=== PATIENT | female | born 1975 | race Asian ===

== ENCOUNTER 2017-06-18 21:07 | Emergency (ER) | payer OTHER ==
[~2017-06-18] VITALS: Ht 172.7 cm; Wt 51.3 kg
[2017-06-18] MEDS ORDERED: NORFLEX100 MG PO (22:55)
[2017-06-18] MEDS ORDERED: NAPROSYN500 MG PO (22:55)
== END 2017-06-18 23:03 | disposition home or self-care (01) ==
LOC: ER 21:07
DX: S16.1XXA Strain of muscle, fascia and tendon at neck level, initial encounter (principal); S00.03XA Contusion of scalp, initial encounter; V89.2XXA Person injured in unspecified motor-vehicle accident, traffic, initial encounter; Y93.89 Activity, other specified; Y92.89 Other specified places as the place of occurrence of the external cause; Y99.8 Other external cause status